=== PATIENT | male | born 1965 | race African-American/Black ===

== ENCOUNTER 2017-07-12 11:29 | Inpatient (IN) | payer BC ==
[2017-07-12] MEDS: IV NORMAL SALINE 1000ML BAG 1,000 ML IV ×2 (12:17→12:30)
[2017-07-12 12:19] LABS: BASO # 0.2 x10^3/uL (0.0-0.2); BASO % 1 % (0-3); EOS # 0.3 x10^3/uL (0.0-0.7); EOS % 1 % (0-3); HEMATOCRIT 41.7 % (39.0-53.0); HEMOGLOBIN 13.8 g/dL (13.0-17.5); LYMPH # 2.8 x10^3/uL (1.0-4.8); LYMPH % 11 % (24-48); MEAN CORPUSCULAR HEMOGLOBIN 26 pg (25-35); MEAN CORPUSCULAR HGB CONC 33 g/dL (31-37); MEAN CORPUSCULAR VOLUME 78 fL (79-100); MONO # 1.8 x10^3/uL (0.0-1.1); MONO % 7 % (0-9); NEUT # 20.1 x10^3uL (1.8-7.7); NEUT % 80 % (31-73); PLATELET COUNT 499 x10^3/uL (140-400); RED BLOOD COUNT 5.37 x10^6/uL (4.30-5.70); RED CELL DISTRIBUTION WIDTH 16.5 % (11.5-14.5); WHITE BLOOD COUNT 25.2 x10^3/uL (4.0-11.0)
[2017-07-12 12:22] LABS: ADD MAN DIFF? YES
[2017-07-12] MEDS: VANCOMYCIN 2 GM in IV DEXTROSE 5% 500 ML IV (12:26)
[2017-07-12] MEDS ORDERED: ONDANSETRON PF 4 MG/2 ML VIAL. IV (12:30)
[2017-07-12] MEDS ORDERED: MORPHINE SULFATE 4 MG/ML DISP.SYRIN. IV (12:30)
[2017-07-12 12:43] LABS: LACTIC ACID 1.5 mmol/L (0.4-2.0)
[2017-07-12 12:47] LABS: ANION GAP 9 (6-14); BLOOD UREA NITROGEN 50 mg/dL (8-26); CALCIUM 10.3 mg/dL (8.5-10.1); CARBON DIOXIDE 29 mmol/L (21-32); CHLORIDE 91 mmol/L (98-107); CREATININE 2.7 mg/dL (0.7-1.3); GFR 30.1; GLUCOSE 289 mg/dL (70-99); SODIUM 129 mmol/L (136-145)
[2017-07-12 12:55] LABS: C-REACTIVE PROTEIN 197.2 mg/L (0-3.3)
[2017-07-12 13:06] LABS: % BANDS 1 % (0-9); % EOS 2 % (0-5); % LYMPHS 13 % (24-48); % MONOS 8 % (0-10); % SEGS 76 % (35-66); ANISOCYTOSIS SLIGHT; PLT ESTIMATE INCREASED (ADEQUATE)
[2017-07-12 13:26] LABS: SEDIMENTATION RATE 80 (0-15)
[2017-07-12 14:15] LABS: PROCALCITONIN 1.32 ng/mL (0.00-0.10)
[2017-07-12 14:36] LABS: POC GLUCOSE 301 mg/dL (70-99)
[2017-07-12] MEDS: VANCOMYCIN PER PHARMACY MC (15:16)
[2017-07-12] MEDS: PIPERACILLIN/TAZOBACTAM 3.375 GM in IV NORMAL SALINE 50ML 50 ML IV (15:35)
[2017-07-12] MEDS: INSULIN ASPART 300 UNITS/3 ML INSULN.PEN SQ ×2 (15:41→16:52)
[2017-07-12] MEDS ORDERED: DEXTROSE 50% 25 GM / 50ML DISP.SYRIN. IV (16:30)
[2017-07-12 16:42] LABS: POC GLUCOSE 344 mg/dL (70-99)
[2017-07-12 20:50] LABS: POC GLUCOSE 205 mg/dL (70-99)
[2017-07-12] MEDS: LACTOBACILLUS RHAMNOSUS GG 1 CAPSULE. PO (20:53)
[2017-07-12] MEDS: INSULIN DETEMIR 300 UNITS/3 ML INSULN.PEN. SQ (20:57)
[2017-07-13 05:16] LABS: ADD MAN DIFF? NO
[2017-07-13 05:23] LABS: BASO # 0.1 x10^3/uL (0.0-0.2); BASO % 0 % (0-3); EOS # 0.4 x10^3/uL (0.0-0.7); EOS % 3 % (0-3); HEMATOCRIT 37.3 % (39.0-53.0); HEMOGLOBIN 12.6 g/dL (13.0-17.5); LYMPH % 17 % (24-48); MEAN CORPUSCULAR HEMOGLOBIN 26 pg (25-35); MEAN CORPUSCULAR HGB CONC 34 g/dL (31-37); MEAN CORPUSCULAR VOLUME 77 fL (79-100); MONO # 1.7 x10^3/uL (0.0-1.1); MONO % 9 % (0-9); NEUT # 12.8 x10^3uL (1.8-7.7); NEUT % 71 % (31-73); PLATELET COUNT 414 x10^3/uL (140-400); RED BLOOD COUNT 4.82 x10^6/uL (4.30-5.70); RED CELL DISTRIBUTION WIDTH 16.3 % (11.5-14.5); WHITE BLOOD COUNT 18.1 x10^3/uL (4.0-11.0)
[2017-07-13 05:40] LABS: ANION GAP 7 (6-14); BLOOD UREA NITROGEN 38 mg/dL (8-26); CALCIUM 9.6 mg/dL (8.5-10.1); CARBON DIOXIDE 29 mmol/L (21-32); CHLORIDE 96 mmol/L (98-107); GFR 42.5; GLUCOSE 157 mg/dL (70-99); POTASSIUM 4.7 mmol/L (3.5-5.1); SODIUM 132 mmol/L (136-145)
[2017-07-13] MEDS: INSULIN ASPART 300 UNITS/3 ML INSULN.PEN SQ ×8 (07:30→17:33)
[2017-07-13 07:54] LABS: POC GLUCOSE 164 mg/dL (70-99)
[2017-07-13] MEDS: VANCOMYCIN PER PHARMACY MC (08:58)
[2017-07-13] MEDS ORDERED: fentaNYL PF VIAL 100 MCG/2 ML VIAL (09:16)
[2017-07-13] MEDS ORDERED: PROPOFOL 20 ML IV (09:16)
[2017-07-13] MEDS ORDERED: LIDOCAINE 2% PF Vial for OR 5 ML VIAL. (09:16)
[2017-07-13] MEDS: IV RINGERS,LACTATED 1000ML 1,000 ML IV (09:21)
[2017-07-13] MEDS ORDERED: MORPHINE SULFATE 4 MG/ML DISP.SYRIN. IV (09:30)
[2017-07-13] MEDS ORDERED: LIDOCAINE 1% PF 2 ML VIAL. ID (09:30)
[2017-07-13] MEDS ORDERED: fentaNYL PF VIAL 100 MCG/2 ML VIAL IV (09:30)
[2017-07-13] MEDS ORDERED: HYDROmorphone 2 MG/ML VIAL IV (09:30)
[2017-07-13] MEDS ORDERED: ONDANSETRON PF 4 MG/2 ML VIAL. IV ×2 (09:30→11:30)
[2017-07-13] MEDS ORDERED: PROCHLORPERAZINE 10 MG/2 ML VIAL. IV (09:30)
[2017-07-13] MEDS ORDERED: PHENYLEPHRINE in 0.9% NACL PF 1 MG/10 ML SYRINGE. IV (10:37)
[2017-07-13] MEDS ORDERED: SEVOFLURANE 31 TO 60 MINUTES. IH (10:45)
[2017-07-13] MEDS ORDERED: DEXAMETHASONE SOD PHOS 20 MG/5 ML VIAL. (10:45)
[2017-07-13] MEDS ORDERED: ONDANSETRON PF 4 MG/2 ML VIAL. (10:52)
[2017-07-13 11:19] LABS: POC GLUCOSE 198 mg/dL (70-99)
[2017-07-13] MEDS: fentaNYL PF VIAL 100 MCG/2 ML VIAL IV ×3 (11:23→12:18)
[2017-07-13] MEDS ORDERED: 0.9 % SODIUM CHLORIDE 10 ML DISP.SYRIN. IV (11:30)
[2017-07-13] MEDS: VANCOMYCIN 1.5 GM in IV DEXTROSE 5% 500 ML IV (12:04)
[2017-07-13 12:40] LABS: POC GLUCOSE 279 mg/dL (70-99)
[2017-07-13] MEDS: LACTOBACILLUS RHAMNOSUS GG 1 CAPSULE. PO ×2 (13:08→22:08)
[2017-07-13 15:13] LABS: HEMOGLOBIN A1C 14.6 % (4.8-5.6)
[2017-07-13 17:24] LABS: POC GLUCOSE 370 mg/dL (70-99)
[2017-07-13 21:27] LABS: POC GLUCOSE 207 mg/dL (70-99)
[2017-07-13] MEDS: DOCUSATE SODIUM 100 MG CAPSULE. PO (22:07)
[2017-07-13] MEDS: LINEZOLID 600 MG TABLET PO (22:08)
[2017-07-13] MEDS: INSULIN DETEMIR 300 UNITS/3 ML INSULN.PEN. SQ (22:17)
[2017-07-14 05:10] LABS: ADD MAN DIFF? NO
[2017-07-14 05:21] LABS: BASO # 0.1 x10^3/uL (0.0-0.2); BASO % 0 % (0-3); EOS # 0.3 x10^3/uL (0.0-0.7); EOS % 2 % (0-3); HEMATOCRIT 35.8 % (39.0-53.0); HEMOGLOBIN 11.6 g/dL (13.0-17.5); LYMPH # 3.5 x10^3/uL (1.0-4.8); LYMPH % 17 % (24-48); MEAN CORPUSCULAR HEMOGLOBIN 25 pg (25-35); MEAN CORPUSCULAR HGB CONC 33 g/dL (31-37); MEAN CORPUSCULAR VOLUME 78 fL (79-100); MONO # 1.8 x10^3/uL (0.0-1.1); MONO % 9 % (0-9); NEUT # 15.2 x10^3uL (1.8-7.7); NEUT % 73 % (31-73); PLATELET COUNT 400 x10^3/uL (140-400); RED BLOOD COUNT 4.56 x10^6/uL (4.30-5.70); RED CELL DISTRIBUTION WIDTH 16.5 % (11.5-14.5); WHITE BLOOD COUNT 20.9 x10^3/uL (4.0-11.0)
[2017-07-14 05:42] LABS: ALBUMIN 2.3 g/dL (3.4-5.0); ALBUMIN/GLOBULIN RATIO 0.4 (1.0-1.7); ALK PHOS 217 U/L (46-116); ALT (SGPT) 82 U/L (16-63); ANION GAP 8 (6-14); AST (SGOT) 57 U/L (15-37); BLOOD UREA NITROGEN 40 mg/dL (8-26); BUN/CREATININE RATIO 18 (6-20); CALCIUM 9.3 mg/dL (8.5-10.1); CARBON DIOXIDE 28 mmol/L (21-32); CHLORIDE 98 mmol/L (98-107); CREATININE 2.2 mg/dL (0.7-1.3); GFR 38.1; GLUCOSE 136 mg/dL (70-99); POTASSIUM 4.9 mmol/L (3.5-5.1); SODIUM 134 mmol/L (136-145); TOTAL BILIRUBIN 0.3 mg/dL (0.2-1.0); TOTAL PROTEIN 8.3 g/dL (6.4-8.2)
[2017-07-14 05:49] LABS: % SAT IRON 45 % (15-34); IRON,SERUM 69 ug/dL (65-175)
[2017-07-14 07:36] LABS: POC GLUCOSE 144 mg/dL (70-99)
[2017-07-14] MEDS: INSULIN ASPART 300 UNITS/3 ML INSULN.PEN SQ ×6 (08:00→17:15)
[2017-07-14] MEDS: LACTOBACILLUS RHAMNOSUS GG 1 CAPSULE. PO ×2 (08:33→20:07)
[2017-07-14] MEDS: DOCUSATE SODIUM 100 MG CAPSULE. PO ×2 (08:34→20:07)
[2017-07-14] MEDS: LINEZOLID 600 MG TABLET PO (08:34)
[2017-07-14] MEDS: HYDROcodone/APAP 5/325MG 1 TAB TABLET PO ×2 (08:34→20:07)
[2017-07-14 11:21] LABS: POC GLUCOSE 202 mg/dL (70-99)
[2017-07-14] MEDS ORDERED: ceFAZolin SODIUM 2 GM in IV DEXTROSE 5% 50 ML IV (16:00)
[2017-07-14 16:21] LABS: POC GLUCOSE 140 mg/dL (70-99)
[2017-07-14 20:49] LABS: POC GLUCOSE 197 mg/dL (70-99)
[2017-07-14] MEDS: INSULIN DETEMIR 300 UNITS/3 ML INSULN.PEN. SQ (21:13)
[2017-07-15 06:01] LABS: GFR 40.2
[2017-07-15 06:01] LABS: CREATININE 2.1 mg/dL (0.7-1.3)
[2017-07-15 07:36] LABS: POC GLUCOSE 234 mg/dL (70-99)
[2017-07-15] MEDS: LACTOBACILLUS RHAMNOSUS GG 1 CAPSULE. PO ×2 (07:43→21:40)
[2017-07-15] MEDS: INSULIN ASPART 300 UNITS/3 ML INSULN.PEN SQ ×6 (07:46→17:19)
[2017-07-15] MEDS: DOCUSATE SODIUM 100 MG CAPSULE. PO ×2 (07:48→21:00)
[2017-07-15 12:00] LABS: POC GLUCOSE 332 mg/dL (70-99)
[2017-07-15] MEDS: CEPHALEXIN 250 MG CAPSULE. PO ×3 (13:28→21:46)
[2017-07-15] MEDS: HYDROcodone/APAP 5/325MG 1 TAB TABLET PO (15:49)
[2017-07-15 17:12] LABS: POC GLUCOSE 149 mg/dL (70-99)
[2017-07-15 20:49] LABS: POC GLUCOSE 178 mg/dL (70-99)
[2017-07-15] MEDS: INSULIN DETEMIR 300 UNITS/3 ML INSULN.PEN. SQ (21:44)
[2017-07-16] MEDS: HYDROcodone/APAP 5/325MG 1 TAB TABLET PO (00:32)
[2017-07-16] MEDS: INSULIN ASPART 300 UNITS/3 ML INSULN.PEN SQ ×6 (08:00→17:06)
[2017-07-16] MEDS: LACTOBACILLUS RHAMNOSUS GG 1 CAPSULE. PO (08:01)
[2017-07-16] MEDS: CEPHALEXIN 250 MG CAPSULE. PO ×3 (08:01→17:01)
[2017-07-16] MEDS: DOCUSATE SODIUM 100 MG CAPSULE. PO (08:01)
[2017-07-16 08:04] LABS: POC GLUCOSE 123 mg/dL (70-99)
[2017-07-16 11:28] LABS: POC GLUCOSE 214 mg/dL (70-99)
[2017-07-16 16:12] LABS: POC GLUCOSE 214 mg/dL (70-99)
== END 2017-07-16 18:08 | disposition home health service (06) | DRG 854 ==
LOC: ER 11:29 → 5 NORTH 12:08
PROVIDERS: Internal Medicine
PROC: 0JB00ZZ Excision of Scalp Subcutaneous Tissue and Fascia, Open Approach (ICD-10-PCS; principal; 2017-07-13 10:00)
DX: A41.9 Sepsis, unspecified organism (principal); N17.9 Acute kidney failure, unspecified; L02.811 Cutaneous abscess of head [any part, except face]; L03.811 Cellulitis of head [any part, except face]; E66.9 Obesity, unspecified; I10 Essential (primary) hypertension; E11.65 Type 2 diabetes mellitus with hyperglycemia; Z68.30 Body mass index [BMI] 30.0-30.9, adult; Z86.14 Personal history of Methicillin resistant Staphylococcus aureus infection; A49.01 Methicillin susceptible Staphylococcus aureus infection, unspecified site
CPT/HCPCS: 36415; 80048; 80053; 82565; 82962; 83036; 83540; 83550; 83605; 84145; 85007; 85025; 85651; 86140; 87040; 87071; 87075; 87186; 87205; 88304; 96365; 99285; 99285-25; J0690; J1100; J1815; J2370; J2405; J2543; J2704; J3010; J3370; J7030

== ENCOUNTER → 2017-08-08 | Outpatient (CLI) | payer BC | END | disposition home or self-care (01) | LOC: PMGWOUND 10:42 | DX: T81.31XA Disruption of external operation (surgical) wound, not elsewhere classified, initial encounter (principal); I10 Essential (primary) hypertension; E78.5 Hyperlipidemia, unspecified; E11.65 Type 2 diabetes mellitus with hyperglycemia; E66.9 Obesity, unspecified; Z68.30 Body mass index [BMI] 30.0-30.9, adult; Z79.4 Long term (current) use of insulin; Y83.8 Other surgical procedures as the cause of abnormal reaction of the patient, or of later complication, without mention of misadventure at the time of the procedure | CPT/HCPCS: 99214 ==

== ENCOUNTER → 2017-08-15 | Outpatient (CLI) | payer BC | END | disposition home or self-care (01) | LOC: PMGWOUND 10:43 | DX: T81.31XD Disruption of external operation (surgical) wound, not elsewhere classified, subsequent encounter (principal); I10 Essential (primary) hypertension; E78.5 Hyperlipidemia, unspecified; L02.818 Cutaneous abscess of other sites; E11.65 Type 2 diabetes mellitus with hyperglycemia; E66.9 Obesity, unspecified; Z68.30 Body mass index [BMI] 30.0-30.9, adult; Z79.4 Long term (current) use of insulin; Y83.8 Other surgical procedures as the cause of abnormal reaction of the patient, or of later complication, without mention of misadventure at the time of the procedure | CPT/HCPCS: 10180; 87071; 87075; 87205 ==

== ENCOUNTER → 2017-08-19 | Outpatient (CLI) | payer BC | END | disposition home or self-care (01) | LOC: PMGWOUND 11:47 | DX: T81.31XD Disruption of external operation (surgical) wound, not elsewhere classified, subsequent encounter (principal); I10 Essential (primary) hypertension; E78.5 Hyperlipidemia, unspecified; L02.818 Cutaneous abscess of other sites; E11.65 Type 2 diabetes mellitus with hyperglycemia; E66.9 Obesity, unspecified; Z68.30 Body mass index [BMI] 30.0-30.9, adult; Z79.4 Long term (current) use of insulin; Y83.8 Other surgical procedures as the cause of abnormal reaction of the patient, or of later complication, without mention of misadventure at the time of the procedure | CPT/HCPCS: 99213 ==

== ENCOUNTER → 2017-08-26 | Outpatient (CLI) | payer BC | END | disposition home or self-care (01) | LOC: PMGWOUND 11:40 | DX: T81.31XD Disruption of external operation (surgical) wound, not elsewhere classified, subsequent encounter (principal); I10 Essential (primary) hypertension; E78.5 Hyperlipidemia, unspecified; L02.818 Cutaneous abscess of other sites; E11.65 Type 2 diabetes mellitus with hyperglycemia; E66.9 Obesity, unspecified; Z68.30 Body mass index [BMI] 30.0-30.9, adult; Z79.4 Long term (current) use of insulin; Y83.8 Other surgical procedures as the cause of abnormal reaction of the patient, or of later complication, without mention of misadventure at the time of the procedure | CPT/HCPCS: 99213 ==